=== PATIENT | male | born 1970 | race Caucasian/White ===

== ENCOUNTER → 2023-11-13 08:21 | Outpatient (REF) | payer BC, SELFPAY | LOC: RST 08:21 | PROVIDERS: ATTENDING PHYSICIAN Student in an Organized Health Care Education/Training Program | DX: R13.19 Other dysphagia (principal) | CPT/HCPCS: 74230; 92611 ==

== ENCOUNTER → 2024-01-12 06:19 | Day surgery (SDC) | payer BC, SELFPAY | LOC: GI 06:19 | PROVIDERS: ATTENDING PHYSICIAN Surgery | DX: Z12.11 Encounter for screening for malignant neoplasm of colon (principal); Z83.719 Family history of colon polyps, unspecified; K57.30 Diverticulosis of large intestine without perforation or abscess without bleeding | CPT/HCPCS: G0105 ==

== ENCOUNTER 2024-05-15 22:06 | Emergency (ER) | payer BC, SELFPAY ==
[2024-05-15 22:08] VITALS: BP 144/91
[2024-05-15 22:44] VITALS: BMI 28.7
--- NOTE | 2024-05-15 22:45 | ED.GENMED ---
History of Present Illness
General
Chief Complaint: Abdominal Pain
Time Seen by Provider: 05/15/24 22:33
History of Present Illness
History of Present Illness:
Patient is a 53-year-old male with history of diverticulitis, fatty liver presenting to the emergency department abdominal pain. Patient states that he had [place] food for dinner. He took a shower and shortly after developed nausea vomiting and
right-sided abdominal pain. He does state that he has been having diarrhea for the past few days but did recently get over the flu that happened this past week. No fevers or chills. No recent travel. ate the same food and does not have any
symptoms. No history of gallstones.
Phy Exam
Physical Exam
Physical Exam:
GENERAL: in no acute distress
HEENT: normocephalic, extraocular movements intact, moist oral mucosa
NECK: normal inspection
RESPIRATORY: no respiratory distress, clear to auscultation bilaterally
CARDIOVASCULAR: regular rate and rhythm
ABDOMEN/: soft, non-distended, right mid and right lower quadrant tenderness to palpation, negative Hernandez sign, no rebound or guarding
EXTREMITIES: non-tender, no edema/swelling
NEUROLOGIC: awake and alert, moves all extremities
SKIN: warm
Course
Orders/Labs/Results
Orders:
Orders
05/15/24 22:16
Electrocardiogram (*1) Urgent
Reason for Study: Abdominal Pain
EKG- Treatment ONCE
IV Insert/Care/Rem.- Treatment PRN
05/15/24 22:44
Ketorolac [Toradol] 15 mg IV NOW STA
Ondansetron Injectable [Zofran] 4 mg IV NOW STA
05/15/24 22:47
Complete Blood Count/With Diff Urgent
Comprehensive Metabolic Panel Urgent
Lipase Urgent
05/16/24 00:00
CT Abd/pelvis W Iv Cont Urgent
Reason For Exam: RLQ tenderness
Abnormal Lab Results
05/15/24
22:47
Abs Immat Gran (auto) 0.1 H 10^3/uL
(0-0.05)
Absolute Neuts (auto) 6.7 H 10^3/uL
(1.4-6.5)
Absolute Monos (auto) 0.7 H 10^3/uL
(0.1-0.6)
Immature Gran % 1.0 H %
(0-0.5)
Lymphocytes % 18.6 L %
(20.5-51.1)
Glucose 126 H mg/dl
(70-99)
ALT 54 H U/L
(0-50)
05/15/24 22:47
05/15/24 22:47
Vital Signs
Initial and Last Documented VS:
Initial Vital Signs
Temp Pulse Resp BP Pulse Ox
97.6 F 61 16 144/91 98
05/15/24 22:08 05/15/24 22:08 05/15/24 22:08 05/15/24 22:08 05/15/24 22:08
Last Documented Vital Signs
Temp Pulse Resp BP Pulse Ox
97.6 F 72 16 122/68 99
05/15/24 22:08 05/15/24 23:25 05/15/24 23:25 05/15/24 23:25 05/15/24 23:25
MDM/Problems Addressed
Differential Diagnosis Includes:
Patient is a 53-year-old man presenting to the emergency department with nausea vomiting and abdominal pain. Vitals are unremarkable and exam does show right mid and right lower palpation. Differential is broad but consists of viral gastritis
versus gallbladder etiology. History and exam not consistent with obstruction or volvulus or other acute abdomen causes. Will check blood work and obtain CT scan. Will pain control and give antiemetics.
*Critical Care Note
Total Time (30-74mins, 75-104mins- exclusive of procedures): Not Applicable
Update Note
Update Note:
On reevaluation patient resting comfortably. He does state that the pain has not. He is not nauseous and not vomiting anymore. CT scan per my interpretation with a gallstone but no signs of gallbladder wall thickening. There is significant fat
stranding of the mesentery. I did receive a call from [facility]. 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 However they cannot
rule out malignancy. They did advise repeat imaging outpatient. I did update patient of these findings. He will call his primary care doctor to get repeat imaging done. Patient was able to tolerate p.o. His abdominal pain has resolved. Will
discharge him at this time. Will discharge with a course of Zofran as needed.
ED Attending Note
-
Portions of this chart may have been created with voice recognition software.� Occasional wrong word or��sound alike� substitutions may have occurred due to the inherent limitations of voice recognition software.
Discharge Plan
Departure
Patient Disposition: Home (Routine Discharge)
Date of Disposition: 05/16/24
Time of Disposition: 01:31
Patient with high blood pressure during this ER visit?: No
Discharge Problem:
Abdominal pain
Instructions: Abdominal Pain
Prescriptions:
New
ondansetron 4 mg tablet,disintegrating
4 mg PO Q8H PRN (Reason: nausea and vomiting) 3 Days Qty: 7 0RF
No Action
multivitamin Tablet
1 tab PO DAILY
Referrals:
Nicho Arauz, [Family Provider] -
Activity Restrictions/Additional Instructions:
You were seen in the Emergency Department today for abdominal pain. While you were here we performed blood work, which was reassuring. Your CT scan did show mesenteric fat infiltration with small mesenteric nodes. Please make sure you follow-up
with your primary care doctor to have a repeat imaging to rule out malignancy.
We would like for you to follow up with your primary care physician for further evaluation. If you experience fever, worsening of your symptoms, or develop any other new or concerning symptoms, please return to the Emergency Department immediately.
Please see the attached sheet for additional information.
Interventions
Interventions:
*Risk Screen - Suicide Last Done: 05/15/24 22:08
*General Assessment Last Done: 05/15/24 22:08
*Neglect/Abuse Screening Last Done: 05/15/24 22:08
ED- Fall Risk Assessment Last Done: 05/15/24 22:45
*ED COVID-19 Vaccine History Last Done: 05/15/24 22:45
VV-Donxzy-Zitsmzewam Assessment Last Done: 05/15/24 22:45
Discharge Date and Time
Print Language: FRISIAN
[2024-05-15] MEDS: ZOFRAN 4 MG IV (22:50)
[2024-05-15] MEDS: TORADOL 15 MG IV (22:50)
[2024-05-15 22:54] LABS: % Basophils 0.3 % (0-2); % Eosinophils 0.9 % (0-6); % Lymphocytes 18.6 % (20.5-51.1); % Monocytes 7.7 % (1.7-9.3); % Neutrophils 71.5 % (42.2-75.2); Absolute Eosinophils 0.1 10^3/uL (0-0.7); Absolute Immature Granulocytes 0.1 10^3/uL (0-0.05); Absolute Lymphocytes 1.7 10^3/uL (1.2-3.4); Absolute Monocytes 0.7 10^3/uL (0.1-0.6); Absolute Neutrophils 6.7 10^3/uL (1.4-6.5); Hematocrit 44.1 % (39.0-52.0); Hemoglobin 14.8 g/dL (13.0-18.0); Mean Corp Hgb Conc. 33.6 g/dL (33.0-37.0); Mean Corpuscular Hgb 30.2 pg (27.0-31.0); Mean Platelet Volume 9.2 fL (7.4-10.4); Nucleated Red Blood Cells % 0 % (-); Platelet Count 272 10^3/uL (130-400); Red Cell Dist. Width 12.4 % (11.5-14.5); White Blood Cell Count 9.3 10^3/uL (4.8-10.8)
[2024-05-15 23:12] LABS: ALT (SGPT) 54 U/L (0-50); AST (SGOT) 29 U/L (17-59); Albumin 3.9 g/dl (3.5-5.0); Alkaline Phosphatase 67 U/L (38-126); Blood Urea Nitrogen 13 mg/dl (9-20); Calcium 8.9 mg/dl (8.4-10.2); Carbon Dioxide 23 mmol/L (22-30); Chloride 106 mmol/L (98-107); Estimated Creatinine Clearance 96 ml/min; Glucose 126 mg/dl (70-99); Lipase 49 U/L (23-300); Potassium 4.2 mmol/L (3.5-5.1); Sodium 137 mmol/L (135-145); Total Bilirubin 0.4 mg/dl (0.2-1.3); Total Protein 6.6 g/dl (6.3-8.2); eGFR > 60.00
[2024-05-15 23:25] VITALS: BP 122/68
[2024-05-16 01:39] VITALS: BP 124/66
== END 2024-05-16 01:40 | disposition home or self-care (01) ==
LOC: EMR 22:06
PROVIDERS: Student in an Organized Health Care Education/Training Program; EMERGENCY PHYSICIAN Student in an Organized Health Care Education/Training Program; FAMILY PHYSICIAN Student in an Organized Health Care Education/Training Program
DX: R10.9 Unspecified abdominal pain (principal); R11.2 Nausea with vomiting, unspecified; Z87.19 Personal history of other diseases of the digestive system
CPT/HCPCS: 96374; 96375; 99284; 74177; 80053; 83690; 85025; 93005; Q9967

== ENCOUNTER 2024-09-04 20:42 | Emergency (ER) | payer BC, SELFPAY ==
[2024-09-04 20:44] VITALS: BP 158/88
[2024-09-04 20:57] LABS: % Basophils 0.7 % (0-2); % Eosinophils 2.2 % (0-6); % Immature Granulocytes 0.5 % (0-0.5); % Lymphocytes 34.8 % (20.5-51.1); % Monocytes 10.7 % (1.7-9.3); % Neutrophils 51.1 % (42.2-75.2); Absolute Basophils 0.1 10^3/uL (0-0.2); Absolute Eosinophils 0.2 10^3/uL (0-0.7); Absolute Lymphocytes 2.6 10^3/uL (1.2-3.4); Absolute Monocytes 0.8 10^3/uL (0.1-0.6); Absolute Neutrophils 3.8 10^3/uL (1.4-6.5); Hematocrit 45.3 % (39.0-52.0); Hemoglobin 15.9 g/dL (13.0-18.0); Mean Corp Hgb Conc. 35.1 g/dL (33.0-37.0); Mean Corpuscular Hgb 31.5 pg (27.0-31.0); Mean Corpuscular Volume 89.9 fL (80.0-94.0); Mean Platelet Volume 9.1 fL (7.4-10.4); Nucleated Red Blood Cells % 0 % (-); Platelet Count 275 10^3/uL (130-400); Red Blood Cell Count 5.04 10^6/uL (4.70-6.10); Red Cell Dist. Width 13.2 % (11.5-14.5); White Blood Cell Count 7.4 10^3/uL (4.8-10.8)
[2024-09-04 21:09] LABS: ALT (SGPT) 56 U/L (0-50); AST (SGOT) 29 U/L (17-59); Albumin 4.7 g/dl (3.5-5.0); Alkaline Phosphatase 52 U/L (38-126); Blood Urea Nitrogen 21 mg/dl (9-20); Calcium 10.2 mg/dl (8.4-10.2); Carbon Dioxide 28 mmol/L (22-30); Chloride 107 mmol/L (98-107); Glucose 112 mg/dl (70-99); Lipase 59 U/L (23-300); Potassium 4.6 mmol/L (3.5-5.1); Sodium 142 mmol/L (135-145); Total Bilirubin 0.4 mg/dl (0.2-1.3); Total Protein 7.9 g/dl (6.3-8.2); eGFR > 60.00
[2024-09-04 21:28] VITALS: BP 104/65
[2024-09-04 21:30] VITALS: BP 104/65; BMI 29.4
--- NOTE | 2024-09-05 00:13 | ED.GENMED ---
History of Present Illness
General
Chief Complaint: Abdominal Pain
Time Seen by Provider: 09/04/24 21:05
History of Present Illness
History of Present Illness:
Note:
CHIEF COMPLAINT(S)
Right upper quadrant pain with nausea and vomiting.
HISTORY OF PRESENT ILLNESS
The patient is a 53-year-old male presenting with pain in the right upper quadrant, which began at approximately 5:00 PM while he was at work. He describes the pain as evolving from discomfort and bloating to more severe pain around a 6 to 7 on the
pain scale. The symptoms persisted on the ride home, where the patient also experienced nausea and subsequently vomited a significant amount. He reports similar episodes of pain and bloating, with associated vomiting, occurring in April. He
consumed chicken salad, croissant, beef jerky, and crackers prior to symptom onset. The patient describes the pain as improving since arrival, now reduced to a 4 or 5 in terms of discomfort with no diarrhea or fever. He believes the episode relates
to gallstones, as discussed during his prior encounter in April.
EXTERNAL RECORDS REVIEWED
Reviewed records from a prior visit in April showing a history of gallstones diagnosis, and previous imaging studies including a report of an ultrasound.
CHRONIC MEDICAL CONDITIONS SIGNIFICANTLY AFFECTING CARE
Possible gallstone disease based on previous evaluations and symptomatic presentation.
REVIEW OF SYSTEMS
- Gastrointestinal: Right upper quadrant pain, nausea, vomiting, bloating, no diarrhea.
- Constitutional: No fever reported.
PHYSICAL EXAM
- Overall appearance: Well-appearing, non-toxic, in no respiratory distress.
- Cardiovascular: Heart sounds regular, no murmur.
- Respiratory: Lungs clear to auscultation.
- Abdominal: Soft with mild tenderness in the right upper quadrant, negative [place] sign, no peritoneal signs.
Nursing notes reviewed and vital signs reviewed.
PLAN
1. Perform an abdominal ultrasound to evaluate for gallbladder stones or signs of cholecystitis.
2. Obtain laboratory studies including Complete Blood Count (CBC) and Complete Metabolic Panel (CMP) to assess any abnormalities, with noted minimal elevation of alanine aminotransferase (ALT).
3. Provide symptomatic relief with medication for discomfort, and advise on a strict low-fat diet.
4. Plan for follow-up with a surgeon to discuss dietary management versus surgical intervention for potential gallbladder removal, if gallstones are confirmed without signs of acute infection.
DIFFERENTIAL DIAGNOSIS
The Differential Diagnosis includes, in no particular order and is not limited to:
1. Biliary colic due to gallstones.
2. Acute cholecystitis.
3. Peptic ulcer disease.
4. Pancreatitis.
5. Hepatitis.
6. Gastroenteritis.
7. Right lower lobe pneumonia mimicking abdominal pain.
8. Myocardial infarction (atypical presentation).
9. Irritable bowel syndrome.
10. Gastritis.
Disposition:
DIAGNOSIS
- Cholelithiasis (ICD-10: K80.20)
- Biliary colic (ICD-10: K80.1)
SUMMARY OF ENCOUNTER
The 53-year-old male patient presented to the emergency department with right upper quadrant pain and a known history of gallstones. The pain started after consuming multiple fatty meals. Ultrasound examination revealed multiple non-movable
gallstones located at the neck of the gallbladder, without secondary signs of acute cholecystitis. The patients pain resolved during his emergency department stay without requiring analgesia.
PLAN
1. Recommend strict adherence to a low-fat diet.
2. Arrange outpatient surgical consultation for further evaluation and potential gallbladder removal.
3. Monitor for any warning signs such as fever, intractable pain, or vomiting, and return to the emergency department if these occur.
INDEPENDENT INTERPRETATION OF TESTS
- My independent interpretation of the abdominal ultrasound reveals numerous non-movable gallstones in the neck of the gallbladder, with no signs of acute cholecystitis.
PATIENT EDUCATION AND COUNSELING
The patient was informed about the importance of a strict low-fat diet and the need for follow-up with a surgeon for evaluation of possible gallbladder removal. Warning signs such as fever, severe pain, or vomiting were discussed, and the patient
was advised to seek immediate medical attention if these symptoms occur.
FOLLOW-UP INSTRUCTIONS
The patient should schedule an outpatient surgical consultation to discuss potential gallbladder removal.
MEDICAL DECISION MAKING
Number and Complexity of Problems Addressed:
The encounter involved acute and chronic issues related to gallstones and biliary colic, reflecting a significant level of complexity given the patients history and current symptoms.
Data:
The diagnostic imaging (ultrasound) provided essential insights for diagnosis and management. The patients differential diagnoses and clinical presentation guided the decision-making process in the emergency department.
Risk:
Consideration of potential complications from gallstones influenced the recommendation for surgical consultation. Social determinants of health affecting adherence to dietary recommendations were considered.
Phy Exam
Physical Exam
Physical Exam:
.
Course
Orders/Labs/Results
Orders:
Orders
09/04/24 20:46
IV Insert/Care/Rem.- Treatment PRN
09/04/24 20:50
Complete Blood Count/With Diff Urgent
Comprehensive Metabolic Panel Urgent
Lipase Urgent
09/04/24 21:53
US Abdomen Complete/Upper Urgent
Comment:
Reason For Exam: RUQ pain
Abnormal Lab Results
09/04/24
20:50
MCH 31.5 H pg
(27.0-31.0)
Absolute Monos (auto) 0.8 H 10^3/uL
(0.1-0.6)
Monocytes % 10.7 H %
(1.7-9.3)
BUN 21 H mg/dl
(9-20)
Glucose 112 H mg/dl
(70-99)
ALT 56 H U/L
(0-50)
09/04/24 20:50
09/04/24 20:50
Vital Signs
Initial and Last Documented VS:
Initial Vital Signs
Temp Pulse Resp BP Pulse Ox
98.2 F 59 20 158/88 100
09/04/24 20:44 06/08/25 20:44 09/04/24 20:44 09/04/24 20:44 09/04/24 20:44
Last Documented Vital Signs
Temp Pulse Resp BP Pulse Ox
98.3 F 61 18 104/65 97
09/04/24 21:30 09/04/24 21:30 09/04/24 21:30 09/04/24 21:30 09/04/24 21:30
*Critical Care Note
Total Time (30-74mins, 75-104mins- exclusive of procedures): Not Applicable
ED Attending Note
-
Portions of this chart may have been created with voice recognition software.� Occasional wrong word or��sound alike� substitutions may have occurred due to the inherent limitations of voice recognition software.
Discharge Plan
Departure
Patient Disposition: Home (Routine Discharge)
Date of Disposition: 09/05/24
Time of Disposition: 00:14
Patient with high blood pressure during this ER visit?: No
Discharge Problem:
Symptomatic cholelithiasis
Instructions: Gallstones (DC), Low-fat diet
Prescriptions:
No Action
multivitamin Tablet
1 tab PO DAILY
ondansetron 4 mg tablet,disintegrating
4 mg PO Q8H PRN (Reason: nausea and vomiting) 3 Days Qty: 7 0RF
Referrals:
Nicho Arauz DO [Family Provider, Family Practice]
Nomi Clement MD [Active, Surgical] - Call in 1-3 days for appt
Activity Restrictions/Additional Instructions:
Return if you have uncontrolled pain, fever or vomiting
Interventions
Interventions:
*Risk Screen - Suicide Last Done: 09/04/24 20:44
*Neglect/Abuse Screening Last Done: 09/04/24 20:44
VF-Tsbtwx-Andadfbjst Assessment Last Done: 09/04/24 21:32
Discharge Date and Time
Print Language: INDONESIAN
[2024-09-05 00:26] VITALS: BP 111/66
== END 2024-09-05 00:28 | disposition home or self-care (01) ==
LOC: EMR 20:42
PROVIDERS: EMERGENCY PHYSICIAN Emergency Medicine; FAMILY PHYSICIAN Student in an Organized Health Care Education/Training Program
DX: K80.70 Calculus of gallbladder and bile duct without cholecystitis without obstruction (principal)
CPT/HCPCS: 99284; 76700; 80053; 83690; 85025

== ENCOUNTER → 2024-09-19 13:43 | Outpatient (REF) | payer BC, SELFPAY | LOC: RAD 13:43 | PROVIDERS: ATTENDING PHYSICIAN Student in an Organized Health Care Education/Training Program | DX: R91.8 Other nonspecific abnormal finding of lung field (principal); K65.4 Sclerosing mesenteritis | CPT/HCPCS: 71260; 74177; Q9967 ==

== ENCOUNTER 2024-10-17 06:24 | Day surgery (SDC) | payer BC, SELFPAY ==
--- NOTE | 2024-10-07 15:57 | PTCARENOTE ---
Abn ECG, Dr. Davies notified, no further actions requested.
[2024-10-17] VITALS (8 sets, daily range): BP systolic 111–137; BP diastolic 65–87; BMI 29.0
[2024-10-17] MEDS: HEPARIN 5000 UNITS SC (10:24)
[2024-10-17] MEDS: NORMOSOL-R/PLASMALYTE-A 1000 IV (10:24)
[2024-10-17] MEDS: TYLENOL 1000 MG PO (10:24)
[2024-10-17] MEDS: IC GREEN 2.5 MG IV (10:25)
--- NOTE | 2024-10-17 11:53 | OR.RPT ---
Addendum entered and electronically signed by Nomi Clement MD 10/19/24 13:31:
DOS 10/17/21
Original Note:
Operative Report
Operative Report
Primary Surgeon: Urbano
Assisting: Leticia RIZZO
Pre-op Diagnosis: Biliary colic
Post-op Diagnosis: Same
Procedure Performed: Robotic cholecystectomy with intraoperative near-infared imaging of major extrahepatic bile ducts
Anesthesia Type: GETA
Specimen / Cultures: Gallbladder
Estimated Blood Loss: 10cc
Complications: None immediate
Operative Findings: Softly distended gallbladder with omental adhesions about the fundus and infundibulum
Indications: This 53M developed right upper quadrant/epigastric pain and on workup was found to have cholelithiasis with normal labwork and a normal size common duct. Laparoscopic cholecystectomy with robotic assist was elected.
Description of procedure: The patient was placed on the operating table in the supine position. General anesthesia was induced. A time-out was completed verifying correct patient, procedure,
site, positioning, and special equipment prior to beginning this procedure. An orogastric tube was placed. The abdomen was prepped and draped in the usual sterile fashion. A stab incision was made in left upper quadrant and the Veress needle was
inserted. Proper position was confirmed by aspiration and saline meniscus test. The abdomen was insufflated with carbon dioxide to a pressure of 12 mmHg. The patient tolerated insufflation well.
An 8mm optical trocar was then inserted in the left upper quadrant. The laparoscope was inserted and the abdomen inspected. No injuries from initial trocar placement or Veress needle insertion were noted. Additional 8mm trocars were then inserted in
the following locations: above the umbilicus, right mid axillary line at the level of the umbilicus and 6cm lateral to this on the right. The abdomen was inspected and no abnormalities were found. The table was placed in the reverse Trendelenburg
position with the right side up. The dome of the gallbladder was grasped with an atraumatic grasper and retracted over the dome of the liver. The infundibulum was also grasped with an atraumatic grasper and retracted toward the right lower
quadrant. Dense omental adhesions to the fundus and infundibulum were taken down. This maneuver exposed Calot�s triangle. The peritoneum overlying the gallbladder infundibulum was then incised and the cystic duct and cystic artery identified and
circumferentially dissected so that a clear view of the liver was achieved through a window between the cystic duct an cystic artery. This area had wall thickening and fatty infiltration. At this time, the only two structures going into the
gallbladder were the cystic artery and cystic duct. ICG was used to visualize the cystic and common ducts and the common duct was protected.
The cystic duct was then doubly clipped and divided and the and cystic artery was controlled with bipolar and divided. Both structures were taken close to the gallbladder. The gallbladder was then dissected from its peritoneal attachments by
electrocautery. Hemostasis was assured and the gallbladder and contained stones were removed using an endoscopic retrieval bag placed through the umbilical port. The gallbladder was passed off the table as a specimen. The gallbladder fossa was
irrigated with copious sterile saline and hemostasis was assured. There was no evidence of bleeding from the gallbladder fossa or cystic artery or leakage of the bile from the cystic duct stump. The umbilical trocar site was closed at the fascial
level laparoscopically with 2-0 PDS. Secondary trocars were removed under direct vision and noted to be hemostatic. The laparoscope was withdrawn and the umbilical trocar removed. The abdomen was allowed to collapse. The skin was closed with
subcuticular sutures of 4-0 monocryl and topical skin adhesive. The orogastric tube was removed.
The patient tolerated the procedure well and was taken to the postanesthesia care unit in stable condition.
[2024-10-17] MEDS: DILAUDID 0.5 MG IV (12:02)
[2024-10-17] MEDS: DILAUDID 0.25 MG IV (12:16)
== END 2024-10-17 13:46 | disposition home or self-care (01) ==
LOC: SDS 06:24
PROVIDERS: ATTENDING PHYSICIAN Surgery
DX: K80.10 Calculus of gallbladder with chronic cholecystitis without obstruction (principal); K66.0 Peritoneal adhesions (postprocedural) (postinfection)
CPT/HCPCS: 47563; 88304